=== PATIENT | male | born 1995 | race Caucasian/White ===

== ENCOUNTER 2023-04-07 07:08 | Emergency (ER) | payer OTHER ==
[2023-04-07 07:24] VITALS: BP 128/77; PULSE 58; RESP 18; TEMP 98.3; BMI 39.4
== END 2023-04-07 08:26 | disposition home or self-care (01) ==
LOC: JERFT 07:08 → JER 07:08 → JERFT 08:26
DX: K08.89 Other specified disorders of teeth and supporting structures (principal)
CPT/HCPCS: 99282-25